=== PATIENT | male | born 1970 | race Native Hawaiian/Other Pacific Islander ===

== ENCOUNTER 2021-07-01 11:38 | Observation (INO) | payer OTHER ==
[~2021-07-01] VITALS: Ht 175.3 cm; Wt 65.1 kg
[2021-07-01 13:15] LABS: PLATELET COUNT 167 K/uL (142-355)
[2021-07-01 13:30] LABS: POTASSIUM 4.9 mmol/L (3.6-5.2)
[2021-07-01 15:10] VITALS: BP 117/64; TEMP 97.7; Ht 175.3 cm; Wt 65.1 kg
[2021-07-01 16:00] VITALS: BP 87/51; TEMP 97.9
[2021-07-01 20:00] VITALS: BP 101/55; TEMP 98
[2021-07-02] VITALS: BP 106/65; BP 92/48; TEMP 98
[2021-07-02 04:00] VITALS: BP 103/61; TEMP 97.9
[2021-07-02 05:34] LABS: PLATELET COUNT 135 K/uL (142-355)
[2021-07-02 06:01] LABS: POTASSIUM 3.7 mmol/L (3.6-5.2)
[2021-07-02 08:00] VITALS: BP 97/63; TEMP 98.5
[2021-07-02] MEDS ORDERED: BUSPIRONE5 MG PO (09:57)
[2021-07-02] MEDS ORDERED: ALBUTEROL0.083 % INH (09:58)
[2021-07-02] MEDS ORDERED: ALPR0.5T24 PO (09:59)
[2021-07-02] MEDS ORDERED: LEVOFLOXACIN500 MG PO (10:00)
[2021-07-02] MEDS ORDERED: CETIRIZINE HYDR10 MG PO (10:01)
[2021-07-02] MEDS ORDERED: SERTRALINE HYDR50 MG PO (10:02)
[2021-07-02] MEDS ORDERED: LISI5TAB10 PO (10:03)
[2021-07-02] MEDS ORDERED: METO-837 PO (10:04)
[2021-07-02 12:00] VITALS: BP 117/52; TEMP 98.7
[2021-07-02 16:00] VITALS: BP 112/62; TEMP 97.6
[2021-07-02 20:00] VITALS: BP 114/69; TEMP 97.9
[2021-07-03] VITALS: BP 100/52; TEMP 98.1
[2021-07-03 04:00] VITALS: BP 102/53; TEMP 98.5
[2021-07-03 08:00] VITALS: BP 116/69; TEMP 98.1
[2021-07-03 09:35] LABS: PLATELET COUNT 148 K/uL (142-355)
[2021-07-03 12:00] VITALS: BP 111/62; TEMP 98.3
== END 2021-07-03 13:05 | disposition home or self-care (01) ==
LOC: MED/SURG 11:38 → EDSTATUS 11:40 → MED/SURG 11:40
PROVIDERS: ADMIT Family Medicine; ATTEND Family Medicine
DX: J44.1 Chronic obstructive pulmonary disease with (acute) exacerbation (principal); R05.8 Other specified cough; R06.02 Shortness of breath; Z72.0 Tobacco use; I10 Essential (primary) hypertension; F41.8 Other specified anxiety disorders
CPT/HCPCS: 36415; 80053; 81000; 84443; 84484; 85027; 87040; 87070; 87205; 87635; 94640; 94664; 94760; 96361; 96365; 96367; 96372; 96375; 99220; G0378; G0379; J0696; J1650; J1956; J3490; U0003

== ENCOUNTER 2021-12-17 20:08 | Emergency (ER) | payer OTHER ==
[~2021-12-17] VITALS: Ht 175.3 cm; Wt 64.0 kg
[~2021-12-17 20:08] MED LIST: ALBUTEROL0.083 % INH; ALPR0.5T24 PO; BUSPIRONE5 MG PO; CETIRIZINE HYDR10 MG PO; LEVOFLOXACIN500 MG PO; LISI5TAB10 PO; METO-837 PO; SERTRALINE HYDR50 MG PO
[2021-12-17 21:22] LABS: PLATELET COUNT 178 K/uL (142-355)
[2021-12-17] MEDS ORDERED: Z-PAK PO (22:26)
[2021-12-17] MEDS ORDERED: ALBU90AE13 INH (22:26)
[2021-12-17 22:45] VITALS: BP 114/89; TEMP 98.5
== END 2021-12-17 22:45 | disposition home or self-care (01) ==
LOC: ED 20:08
PROVIDERS: Emergency Medicine
DX: J20.9 Acute bronchitis, unspecified (principal); R06.2 Wheezing; F17.210 Nicotine dependence, cigarettes, uncomplicated; Z20.822 Contact with and (suspected) exposure to COVID-19
CPT/HCPCS: 36415; 80048; 83880; 84484; 85027; 87635; 96372; 99284; J0696; J2920; U0003